=== PATIENT | female | born 1980 | race Caucasian/White ===

== ENCOUNTER → 2019-08-07 | Outpatient (REF) | payer OTHER, SELFPAY | LOC: M LAB REF 12:14 | PROVIDERS: ATTEND Obstetrics & Gynecology | DX: O09.523 Supervision of elderly multigravida, third trimester (principal) ==

== ENCOUNTER → 2019-08-11 | Outpatient (CLI) | payer OTHER ==
[2019-08-11 13:22] LABS: HEMATOCRIT 37.4 % (36.0-47.0); HEMOGLOBIN 12.9 g/dl (12.0-15.5); MEAN CORPUSCULAR HEMOGLOBIN 33.5 pg (27.0-33.0); MEAN CORPUSCULAR HGB CONC 34.5 g/dl (32.0-36.5); MEAN CORPUSCULAR VOLUME 97.1 fl (80.0-96.0); PLATELET COUNT, AUTOMATED 215 10^3/uL (150-450); RED BLOOD COUNT 3.85 10^6/uL (4.00-5.40)
[2019-08-12 08:17] LABS: WHITE BLOOD COUNT 7.9 10^3/uL (4.0-10.0)
== END ==
LOC: M LAB 11:36
PROVIDERS: ATTEND Obstetrics & Gynecology
DX: O09.523 Supervision of elderly multigravida, third trimester (principal)

== ENCOUNTER 2019-09-15 09:44 | Outpatient (CLI) | payer OTHER ==
[~2019-09-15] VITALS: Ht 177.8 cm; Wt 108.3 kg
[2019-09-15 10:00] VITALS: BP 130/76
[2019-09-15] MEDS ORDERED: PRENTAB9 PO (10:07)
[2019-09-15] MEDS ORDERED: LR 1,000 ML IV ONE (10:30)
[2019-09-15 11:12] LABS: APPEARANCE, URINE CLEAR (CLEAR); BACTERIA, URINE AUTO 1+ (NEGATIVE); BILIRUBIN, URINE AUTO NEGATIVE (NEGATIVE); BLOOD, URINE BLOOD NEGATIVE (NEGATIVE); COLOR, URINE STRAW (YELLOW); GLUCOSE, URINE (UA) AUTO NEGATIVE (NEGATIVE); KETONE, URINE AUTO NEGATIVE (NEGATIVE); LEUKOCYTE ESTERASE, URINE AUTO NEGATIVE (NEGATIVE); NITRITE, URINE AUTO NEGATIVE (NEGATIVE); PROTEIN, URINE AUTO NEGATIVE (NEGATIVE); RBC, URINE AUTO 0 /HPF (0-3); SPECIFIC GRAVITY URINE AUTO 1.004 (1.002-1.035); SQUAMOUS EPITHELIAL CELL UR AU 0 /HPF (0-6); UROBILINOGEN, URINE AUTO 0.2 mg/dL (0.0-2.0); WBC, URINE AUTO 0 /HPF (0-3)
[2019-09-15 11:23] LABS: HEMATOCRIT 34.9 % (36.0-47.0); HEMOGLOBIN 12.3 g/dl (12.0-15.5); MEAN CORPUSCULAR HEMOGLOBIN 33.5 pg (27.0-33.0); MEAN CORPUSCULAR HGB CONC 35.2 g/dl (32.0-36.5); MEAN CORPUSCULAR VOLUME 95.1 fl (80.0-96.0); PLATELET COUNT, AUTOMATED 201 10^3/uL (150-450); RED BLOOD COUNT 3.67 10^6/uL (4.00-5.40); WHITE BLOOD COUNT 8.9 10^3/uL (4.0-10.0)
[2019-09-15] MEDS ORDERED: LR 1,000 ML IV SCH (12:30)
[2019-09-15 12:38] VITALS: BP 118/62
== END 2019-09-15 17:18 | disposition home or self-care (01) ==
LOC: M LDO 09:44
PROVIDERS: ATTEND Obstetrics & Gynecology
DX: O47.03 False labor before 37 completed weeks of gestation, third trimester (principal); Z3A.34 34 weeks gestation of pregnancy
CPT/HCPCS: 59025; 81001; 85027; G0378; G0463

== ENCOUNTER → 2019-09-23 | Outpatient (REF) | payer OTHER ==
[~2019-09-23] MED LIST: PRENTAB9 PO
== END ==
LOC: M LAB REF 16:44
PROVIDERS: ATTEND Obstetrics & Gynecology
DX: Z36.85 Encounter for antenatal screening for Streptococcus B (principal)

== ENCOUNTER 2019-10-07 06:15 | Inpatient (IN) | payer OTHER ==
[2019-10-07] VITALS (8 sets, daily range): BP systolic 115–121; BP diastolic 58–78
[~2019-10-07] VITALS: Ht 177.8 cm; Wt 108.6 kg
[~2019-10-07 06:15] MED LIST changes: +MULTCAP PO
[2019-10-07] MEDS ORDERED: LACTATED RINGER'S 1000 ML IV STA (06:23)
[2019-10-07] MEDS ORDERED: LR 1,000 ML IV SCH ×2 (06:23→09:15)
[2019-10-07] MEDS ORDERED: BICITRA 30ML SOLN UDC PO ONE (06:30)
[2019-10-07] MEDS ORDERED: ceFAZolin SOD 2 GM in IV 1 EA IV ONE (06:30)
[2019-10-07 07:01] LABS: HEMATOCRIT 37.6 % (36.0-47.0); HEMOGLOBIN 12.7 g/dl (12.0-15.5); MEAN CORPUSCULAR HEMOGLOBIN 32.1 pg (27.0-33.0); MEAN CORPUSCULAR HGB CONC 33.8 g/dl (32.0-36.5); MEAN CORPUSCULAR VOLUME 94.9 fl (80.0-96.0); PLATELET COUNT, AUTOMATED 206 10^3/uL (150-450); RED BLOOD COUNT 3.96 10^6/uL (4.00-5.40); WHITE BLOOD COUNT 8.1 10^3/uL (4.0-10.0)
[2019-10-07] MEDS ORDERED: MORPHINE PRES-FREE INJ 10 MG/10 ML VIAL (J2274) As Ordered ONE (07:49)
[2019-10-07] MEDS ORDERED: PHENYLephrine HCL 500 MCG/5 ML (100MCG/ML) SYRINGE (J2370) As Ordered ONE (07:49)
[2019-10-07] MEDS ORDERED: NALOXONE INJ 0.4 MG/1 ML VIAL (J2310) IV PRN ×2 (07:50)
[2019-10-07] MEDS ORDERED: diphenhydrAMINE INJ 50MG/ML VIAL (J1200) IV PRN (07:50)
[2019-10-07] MEDS ORDERED: NALBUPHINE HCL 10 MG/ML AMP (J2300) IV PRN (07:50)
[2019-10-07] MEDS ORDERED: ePHEDrine SULFATE 25 MG/5 ML(5MG/ML) SYRINGE As Ordered ONE (07:50)
[2019-10-07] MEDS ORDERED: ONDANSETRON 4MG/2ML VIAL (J2405) IV PRN ×2 (07:50→09:15)
[2019-10-07] MEDS ORDERED: METOCLOPRAMIDE INJ 10MG/2ML VIAL (J2765) IV PRN ×2 (07:50→09:15)
[2019-10-07] MEDS ORDERED: fentaNYL 100 MCG/2 ML INJECTION (J3010) As Ordered ONE ×2 (08:01→08:58)
[2019-10-07] MEDS ORDERED: KETAMINE HCL 200 MG/20 ML VIAL As Ordered ONE (08:01)
[2019-10-07] MEDS ORDERED: MIDAZOLAM INJ 2 MG/2 ML VIAL (J2250) As Ordered ONE (08:01)
[2019-10-07] MEDS ORDERED: METOCLOPRAMIDE INJ 10MG/2ML VIAL (J2765) As Ordered ONE (08:12)
[2019-10-07] MEDS ORDERED: KETOROLAC 60 MG/2 ML VIAL (J1885) As Ordered ONE (08:12)
[2019-10-07] MEDS ORDERED: ONDANSETRON 4MG/2ML VIAL (J2405) As Ordered ONE (08:12)
[2019-10-07 08:20] LABS: CORD GAS HCO3 V 23.8 MEQ/L; CORD GAS O2 SAT V 89.4 %; CORD GAS PCO2 V 44.6 mmHg; CORD GAS PH V 7.346 UNITS; CORD GAS PO2 V 44.5 mmHg; CORD GAS SBC V 22.6 MEQ/L; CORD GAS TCO2 V 25.2 MEQ/L
[2019-10-07] MEDS ORDERED: PROPOFOL 200 MG/20 ML VIAL As Ordered ONE (08:22)
[2019-10-07 08:23] LABS: CORD GAS ABE A -2.2; CORD GAS HCO3 A 25.8 MEQ/L; CORD GAS O2 SAT A 66.2 %; CORD GAS PCO2 A 57.8 mmHg; CORD GAS PH A 7.268 UNITS; CORD GAS PO2 A 29.1 mmHg; CORD GAS SBC A 21.9 MEQ/L; CORD GAS TCO2 A 27.6 MEQ/L
[2019-10-07] MEDS ORDERED: OXYTOCIN 30 UNITS IN 0.9% NaCl 500ML IV BAG (J2590) As Ordered ONE (08:37)
[2019-10-07] MEDS ORDERED: OXYTOCIN DRIP 30 UNITS in IV 1 EA IV SCH (08:40)
[2019-10-07] MEDS ORDERED: IBUPROFEN 600 MG TAB PO PRN (08:45)
[2019-10-07] MEDS ORDERED: RHOGAM 300 MCG (1500 IU) INJ (J2790) IM SCH (08:45)
[2019-10-07] MEDS ORDERED: ONDANSETRON 4 MG TAB (S0181) PO PRN (08:45)
[2019-10-07] MEDS ORDERED: MOM 30ML SUSPENSION UDC PO PRN (08:45)
[2019-10-07] MEDS ORDERED: MEASLES,MUMPS,RUBELLA VACCINE INJ (MMR-II) (90707) SC SCH (08:45)
[2019-10-07] MEDS: DOCUSATE SODIUM 100 MG CAP PO SCH ×2 (09:00→20:42)
[2019-10-07] MEDS: PRENATAL VITAMINS CHEWABLE TABLET PO SCH (09:00)
[2019-10-07] MEDS: fentaNYL 100 MCG/2 ML INJECTION (J3010) IV PRN ×4 (09:05→10:18)
[2019-10-07] MEDS ORDERED: PERCOCET 5MG/325MG TAB PO PRN (09:15)
[2019-10-07] MEDS ORDERED: PERCOCET 5MG/325MG TAB As Ordered ONE (09:36)
[2019-10-07] MEDS: PERCOCET 5MG/325MG TAB PO PRN ×2 (13:57→19:23)
[2019-10-07] MEDS: IBUPROFEN 800 MG TAB PO PRN (16:33)
--- NOTE | 2019-10-07 22:38 | RO ---
DATE OF PROCEDURE: 10/07/2019 Carlton is a 39-year-old female 3, para 2-0-0-2 with a history of two prior sections, being admitted for an elective repeat section and bilateral tubal ligation. PREOPERATIVE DIAGNOSES: 1. Term , for elective repeat section. 2. Desires permanent tubal sterilization. POSTOPERATIVE DIAGNOSES: 1. Term , for elective repeat section. 2. Desires permanent tubal sterilization. PROCEDURE: 1. Repeat section. 2. Bilateral tubal ligation using Filshie clip. 3. Revision of old scar. SURGEON: Dr. Cem Mary PURCHASING BUYER: Dr. Smith ANESTHESIA: Spinal. COMPLICATIONS: None. ESTIMATED BLOOD LOSS: 500 mL. FINDINGS: Live female in occiput transverse position. scores 9 and 9. weight 7 pounds 6 ounces. Normal appearing tubes and ovaries. DESCRIPTION OF PROCEDURE: After obtaining informed consent, the patient was taken to the operating room where spinal anesthetic was found to be adequate. She was then draped and prepped in the usual sterile fashion in the supine position. Dawn catheter was placed in the bladder for drainage. We then turned to the patient. With the assistance of Dr. Smith, an elliptical incision was made over the old scar. The old scar was removed. The incision was then carried down to the fascia. Fascia was incised in a midline fashion and carried through laterally. Superior aspect of the fascia was then grasped with Migel clamps, tented off and dissected off the rectus muscles sharply. The inferior aspect was dissected off in similar fashion. Rectus muscles in a midline fashion. Peritoneum identified. Peritoneal cavity entered bluntly. Superior and inferior dissection of the peritoneum was then done with good visualization of the bladder. At this point, a Mobius skin retractor was placed. A low transverse uterine incision was made. A thin lower uterine segment was found. The incision was then spread laterally. The was delivered in atraumatic fashion. Nose and mouth bulb suctioned. Cord doubly clamped and cut and infant was handed over to the awaiting warmer. Cord blood and cord gas were sent. Placenta removed manually. Uterus cleared of all clot and debris, and the uterine incision was then repaired in two separate layers of #0 Vicryl sutures. At this point, we then turned our attention to the fallopian tube where the fimbriated ends were identified. Filshie clip was then applied approximately 2-3 cm away from the cornual area in each tube. Pelvis copiously irrigated with normal saline and suctioned out. Good hemostasis noted. Attention turned to the peritoneum, which was closed in a running fashion using #2-0 Vicryl. Fascia closed in two separate segments of #0 Vicryl sutures. All superficial bleeders coagulated, and the skin was reapproximated in subcuticular fashion using #3-0 Vicryl on a Vincent. Steri-Strips placed. The patient tolerated the procedure well. She was then transferred to the recovery room in stable condition.
[2019-10-08] MEDS: IBUPROFEN 800 MG TAB PO PRN ×3 (00:04→20:27)
[2019-10-08 02:00] VITALS: BP 104/56
[2019-10-08] MEDS: PERCOCET 5MG/325MG TAB PO PRN ×4 (02:03→22:29)
[2019-10-08 05:10] VITALS: BP 114/70
[2019-10-08 07:07] LABS: HEMATOCRIT 34.4 % (36.0-47.0); HEMOGLOBIN 11.8 g/dl (12.0-15.5); MEAN CORPUSCULAR HEMOGLOBIN 33.1 pg (27.0-33.0); MEAN CORPUSCULAR HGB CONC 34.3 g/dl (32.0-36.5); MEAN CORPUSCULAR VOLUME 96.4 fl (80.0-96.0); PLATELET COUNT, AUTOMATED 204 10^3/uL (150-450); RED BLOOD COUNT 3.57 10^6/uL (4.00-5.40)
[2019-10-08] MEDS: PRENATAL VITAMINS CHEWABLE TABLET PO SCH (07:39)
[2019-10-08] MEDS: DOCUSATE SODIUM 100 MG CAP PO SCH ×2 (08:00→20:27)
[2019-10-08] MEDS ORDERED: ADACEL/BOOSTRIX VACCINE (DIPHTH/PERTUSS/ACELL/TETANUS)0.5ML SYR (90715) IM ONE (09:00)
[2019-10-08 10:00] VITALS: BP 112/55
[2019-10-08 14:30] VITALS: BP 124/68
[2019-10-08 18:00] VITALS: BP 128/69
[2019-10-09 02:28] VITALS: BP 130/76
[2019-10-09] MEDS: IBUPROFEN 800 MG TAB PO PRN ×2 (04:11→11:44)
[2019-10-09 06:08] VITALS: BP 134/68
[2019-10-09] MEDS: PERCOCET 5MG/325MG TAB PO PRN ×2 (06:57→11:45)
[2019-10-09] MEDS ORDERED: IBUP80TA PO (07:41)
[2019-10-09] MEDS ORDERED: PERCOCET PO (07:41)
[2019-10-09] MEDS: PRENATAL VITAMINS CHEWABLE TABLET PO SCH (09:00)
[2019-10-09] MEDS: DOCUSATE SODIUM 100 MG CAP PO SCH (09:15)
== END 2019-10-09 13:30 | disposition home or self-care (01) | DRG 785 ==
LOC: M LDI 06:15 → M OBS 10:50
PROVIDERS: ADMIT Obstetrics & Gynecology; ATTEND Obstetrics & Gynecology
PROC: 0UL70DZ Occlusion of Bilateral Fallopian Tubes with Intraluminal Device, Open Approach (ICD-10-PCS; 2019-10-07)
PROC: 10D00Z1 Extraction of Products of Conception, Low, Open Approach (ICD-10-PCS; principal; 2019-10-07 07:30)
DX: O34.211 Maternal care for low transverse scar from previous cesarean delivery (principal); Z37.0 Single live birth; Z3A.39 39 weeks gestation of pregnancy; Z30.2 Encounter for sterilization; O09.521 Supervision of elderly multigravida, first trimester

== ENCOUNTER 2019-10-25 19:30 | Emergency (ER) | payer OTHER ==
[~2019-10-25] VITALS: Ht 177.8 cm; Wt 100.0 kg
[~2019-10-25 19:30] MED LIST changes: +IBUP80TA PO; +PERCOCET PO
[2019-10-25] MEDS ORDERED: COLA100C5 PO (19:48)
[2019-10-25 20:30] LABS: BASO % 0.7 % (0.0-1.0); EOS # 0.2 10^3/uL (0.0-0.5); HEMATOCRIT 44.7 % (36.0-47.0); HEMOGLOBIN 14.4 g/dl (12.0-15.5); LYMPH # 2.2 10^3/uL (1.5-5.0); LYMPH % 40.4 % (24.0-44.0); MEAN CORPUSCULAR HEMOGLOBIN 31.3 pg (27.0-33.0); MEAN CORPUSCULAR HGB CONC 32.2 g/dl (32.0-36.5); MEAN CORPUSCULAR VOLUME 97.2 fl (80.0-96.0); MONO # 0.5 10^3/uL (0.0-0.8); MONO % 8.6 % (0.0-5.0); NEUTROPHILS # 2.6 10^3/uL (1.5-8.5); NEUTROPHILS % 45.9 % (36.0-66.0); PLATELET COUNT, AUTOMATED 309 10^3/uL (150-450); WHITE BLOOD COUNT 5.6 10^3/uL (4.0-10.0)
[2019-10-25 20:57] LABS: BLOOD UREA NITROGEN 16 MG/DL (7-18); CALCIUM LEVEL 9.3 MG/DL (8.5-10.1); CARBON DIOXIDE LEVEL 29 MEQ/L (21-32); CHLORIDE LEVEL 104 MEQ/L (98-107); CREATININE FOR GFR 0.73 MG/DL (0.55-1.30); GLOMERULAR FILTRATION RATE > 60.0 (>60); GLUCOSE, FASTING 85 MG/DL (70-100); POTASSIUM SERUM 4.1 MEQ/L (3.5-5.1); SODIUM LEVEL 140 MEQ/L (136-145)
--- NOTE | 2019-10-25 21:41 | REPVR ---
PROCEDURE INFORMATION: Exam: US Pelvis Limited, Transabdominal Exam date and time: 10/25/2019 8:33 PM Age: 39 years old Clinical indication: Pelvic pain; Prior surgery; Surgery date: <1 month; Surgery type: 2 weeks ago; Additional info: Right incision swelling/pain; R/O abscess TECHNIQUE: Imaging protocol: Real-time transabdominal pelvic ultrasound with image documentation. Limited exam. COMPARISON: No relevant prior studies available. FINDINGS: Soft tissues: Subcutaneous edema over the incision. Complex subcutaneous fluid collection with some internal septations at the incision site measuring 1.7 x 1.4 x 8.2 cm extending the length of the incision. Doppler imaging was not obtained. IMPRESSION: Complex subcutaneous fluid collection in the abdominal incision. Finding may be a postoperative seroma. Doppler images to evaluate for hyperemia or internal blood flow are not obtained. The collection would be amenable to percutaneous drainage. Electronically signed by: Will Lima On 10/25/2019 21:40:53 PM
[2019-10-25 21:50] VITALS: BP 127/72
== END 2019-10-25 22:27 | disposition home or self-care (01) ==
LOC: M ED 19:30
DX: G89.18 Other acute postprocedural pain (principal); L76.34 Postprocedural seroma of skin and subcutaneous tissue following other procedure; Z79.899 Other long term (current) drug therapy

== ENCOUNTER 2019-10-27 13:54 | Emergency (ER) | payer OTHER ==
[~2019-10-27] VITALS: Ht 177.8 cm; Wt 133.0 kg
[~2019-10-27 13:54] MED LIST changes: +COLA100C5 PO
[2019-10-27 14:53] LABS: BASO # 0.1 10^3/uL (0.0-0.2); EOS # 0.3 10^3/uL (0.0-0.5); EOS % 5.1 % (0.0-3.0); HEMATOCRIT 41.5 % (36.0-47.0); HEMOGLOBIN 13.5 g/dl (12.0-15.5); LYMPH # 1.8 10^3/uL (1.5-5.0); LYMPH % 36.6 % (24.0-44.0); MEAN CORPUSCULAR HEMOGLOBIN 31.7 pg (27.0-33.0); MEAN CORPUSCULAR HGB CONC 32.5 g/dl (32.0-36.5); MEAN CORPUSCULAR VOLUME 97.4 fl (80.0-96.0); MONO # 0.4 10^3/uL (0.0-0.8); MONO % 7.7 % (0.0-5.0); NEUTROPHILS # 2.5 10^3/uL (1.5-8.5); NEUTROPHILS % 49.4 % (36.0-66.0); PLATELET COUNT, AUTOMATED 293 10^3/uL (150-450); RED BLOOD COUNT 4.26 10^6/uL (4.00-5.40)
[2019-10-27 15:15] LABS: BLOOD UREA NITROGEN 12 MG/DL (7-18); CALCIUM LEVEL 9.1 MG/DL (8.5-10.1); CARBON DIOXIDE LEVEL 31 MEQ/L (21-32); CHLORIDE LEVEL 104 MEQ/L (98-107); CREATININE FOR GFR 0.76 MG/DL (0.55-1.30); GLOMERULAR FILTRATION RATE > 60.0 (>60); GLUCOSE, FASTING 94 MG/DL (70-100); POTASSIUM SERUM 3.8 MEQ/L (3.5-5.1); SODIUM LEVEL 141 MEQ/L (136-145)
[2019-10-27] MEDS ORDERED: IBUPROFEN 800 MG TAB PO ONE (15:15)
[2019-10-27 15:50] VITALS: BP 144/78
== END 2019-10-27 15:51 | disposition home or self-care (01) ==
LOC: M ED 13:54
DX: G89.18 Other acute postprocedural pain (principal); R68.83 Chills (without fever); E83.119 Hemochromatosis, unspecified; Z79.899 Other long term (current) drug therapy